=== PATIENT | female | born 1945 | race Caucasian/White ===

== ENCOUNTER 2023-11-24 00:08 | Emergency (ER) | payer OTHER ==
[~2023-11-24] VITALS: Ht 162.6 cm; Wt 86.2 kg
[2023-11-24 00:41] VITALS: TEMP 101.1
[2023-11-24] MEDS ORDERED: ACETAMINOPHEN ES 500 MG TABLET ONE (00:45)
[2023-11-24] MEDS: ACETAMINOPHEN 325 MG TABLET PO ONE (00:48)
[2023-11-24] MEDS ORDERED: NIRM1TAB10 PO (01:40)
[2023-11-24 02:13] VITALS: BP 117/65; O2SAT 97
== END 2023-11-24 02:15 | disposition home or self-care (01) ==
LOC: ER 00:12
DX: U07.1 COVID-19 (principal); I10 Essential (primary) hypertension; Z95.0 Presence of cardiac pacemaker
CPT/HCPCS: 71045-TC